=== PATIENT | female | born 1985 | race Caucasian/White ===

== ENCOUNTER 2016-12-24 07:22 | Day surgery (SDC) ==
[2016-12-24] MEDS ORDERED: PHENERGAN IM ONE (07:43)
[2016-12-24] MEDS ORDERED: TORADOL IM ONE (07:44)
--- NOTE | 2016-12-24 07:49 | PROVIDER DOCUMENTATION ---
HPI-General Adult - General Source: patient - History of Present Illness -Gen Adult Nature of Presenting Problems: The patient awoke this morning at 4 am with abdominal pain and nausea. She took an omeprazole but the pain has only subside a little. She states she has alot of stomach problems and also suffers from constipation. Location of Pain/Injury: reports: abdomen (mid to upper abdomen) Pain Radiation: reports: no radiation Quality of Pain: reports: aching, burning, cramping Severity: reports: moderate Onset/Duration: reports: 4-6 hours ago Timing: reports: still present, improving Context/Activities at Onset: reports: moderate activity Modifying Factors: improves with: nothing Associated Symptoms: reports: constipation, heartburn, nausea. denies: chest pain, diaphoresis, diarrhea, fever/chills, sinus congestion/drainage, shortness of breath, syncope, vomiting Similar Symptoms Previously?: Yes Recently seen or treated by another doctor?: No <Deangelo Disla - Last Filed: 12/24/16 07:44> <Juliana Magaña - Last Filed: 12/24/16 11:47> - General Chief Complaint: Abdominal Pain Stated Complaint: ABD PAIN Time Seen by Provider: 12/24/16 07:41 Allergies/Adverse Reactions: Patient Allergies Allergy/AdvReac Type Severity Reaction Status Date / Time Penicillins Allergy VOMITING Verified 12/01/15 07:09 Home Medications: Home Medication List Medication Instructions Recorded Confirmed Last Taken Type Citalopram [Celexa] 20 mg DAILY 12/01/15 12/01/15 Unknown History Omeprazole 20 mg DAILY 12/01/15 12/01/15 Unknown History Review of Systems - Adult - REVIEW OF SYSTEMS - ADULT Constitutional: reports: no symptoms reported Eyes: reports: no symptoms reported Ears, Nose, Mouth & Throat: reports: no symptoms reported Cardiovascular: reports: no symptoms reported Respiratory: reports: no symptoms reported Gastrointestinal: reports: abdominal pain, frequent heartburn, nausea Genitourinary: reports: no symptoms reported Musculoskeletal: reports: no symptoms reported Integumentary: reports: no symptoms reported Neurological: reports: no symptoms reported Psychiatric: reports: no symptoms reported Endocrine: reports: no symptoms reported Hematologic/Lymphatic: reports: no symptoms reported Allergic/Immunologic: reports: no symptoms reported All Other Systems: Reviewed and Negative <Deangelo Disla - Last Filed: 12/24/16 07:44> Past History - Adult - PAST MEDICAL HISTORY-ADULT Review of Records: reports: Nursing Assessment Review Major Childhood Illnesses: reports: denies history Cardiovascular: denies: blood clots, congenital heart disease, murmur Respiratory: denies: asthma Gastrointestinal: reports: GERD Obstetrical/Gynecological: reports: denies history Genitourinary: reports: denies history Musculoskeletal: reports: denies history Neurological: reports: denies history Psychiatric: reports: anxiety Endocrine/Immune: reports: denies history Other Conditions: reports: denies history - PRIOR SURGERIES/PROCEDURES Surgical/Procedure History: reports: cholecystectomy, - IMMUNIZATION STATUS Childhood Immunizations: See Nurse Assessment Flu Vaccine: See Nurse Assessment - FAMILY HISTORY Family History: reviewed, not pertinent - SOCIAL HISTORY Smoking: cigarettes <Deangelo Disla - Last Filed: 12/24/16 07:44> Physical Exam-General - PHYSICAL EXAM-ADULT Initial Vital Signs Reviewed: Yes - CONSTITUTIONAL General Appearance: appears well, alert, no apparent distress - HEAD, EARS, NOSE, MOUTH & THROAT HENMT: normocephalic/atraumatic - RESPIRATORY Respiratory: lungs clear, normal breath sounds, no respiratory distress - CARDIOVASCULAR Cardiovascular: regular rate, rhythm - CHEST (BREASTS) Chest/Breast: deferred - GASTROINTESTINAL (ABDOMEN) Abdominal Exam: soft, tenderness (mild in the epigastrium). negative: distended , guarding, rigid, rebound, hepatomegaly - MUSCULOSKELETAL Extremity: no pedal edema - SKIN Integumentary: normal color, normal turgor - NEUROLOGIC Neurologic: grossly normal - PSYCHIATRIC Psych/Mental Status: oriented x 3 <Deangelo Disla - Last Filed: 12/24/16 07:44> Progress - PLAN OF CARE/RESULTS Progress/Plan/Lab Results: Laboratory Tests 12/24/16 12/24/16 12/24/16 07:57 07:57 08:02 WBC 19.17 H RBC 4.77 Hgb 12.2 Hct 38.9 MCV 81.6 MCH 25.6 L MCHC 31.4 L RDW Std Deviation 14.8 H Plt Count 272 MPV 9.4 Immature Gran % (Auto) 0.3 Neut % (Auto) 79.1 H Lymph % (Auto) 12.7 L Churchill % (Auto) 7.0 Eos % (Auto) 0.8 Baso % (Auto) 0.1 Immature Gran # (Auto) 0.05 H Neut # (Auto) 15.16 H Lymph # (Auto) 2.43 Churchill # (Auto) 1.35 H Eos # (Auto) 0.16 Baso # (Auto) 0.02 Sodium 135 L Potassium 3.9 Chloride 103 Carbon Dioxide 23 L Anion Gap 9 BUN 13 Creatinine 0.6 Estimated GFR/1.73 m2 > 60 BUN/Creatinine Ratio 22 Glucose 108 H Calculated Osmolality 271 Calcium 8.5 L Urine Source CLEAN CATCH Urine Color YELLOW Urine Clarity CLEAR Urine pH 7.0 Ur Specific [place] 1.015 Urine Protein NEGATIVE Urine Ketones NEGATIVE Urine Blood 1+ A Urine Nitrite NEGATIVE Urine Bilirubin NEGATIVE Urine Urobilinogen NORMAL Urine Microscopic RBC <10 Urine WBC NEGATIVE Urine Microscopic WBC <10 Ur Epithelial Cells <10 Urine Glucose NEGATIVE Orders Category Date Time Status FLAT/UPRIGHT ABD/1 VIEW CHEST [RAD] Stat Exams 12/24/16 09:18 Ordered BMP [BASIC METABOLIC PANEL] [CHEM] Stat Lab 12/24/16 07:57 Completed CBC WITH ELECTRONIC DIFF [HEME] Stat Lab 12/24/16 07:[address] W/POSS RFLX CULT [URINALYSIS] Stat Lab 12/24/16 08:02 Completed Ketorolac [Toradol] Med 12/24/16 07:44 Discontinued 60 mg IM NOW ONE Promethazine [Phenergan] Med 12/24/16 07:43 Discontinued 25 mg IM NOW ONE Vital Signs - 24 hr 12/24/16 07:27 Temperature 98 F Pulse Rate 79 Respiratory 18 Rate Blood Pressure 125/73 O2 Sat by Pulse 100 Oximetry - REASSESSMENT Reassessment #1 Time Reassessed: 09:20 (Dr. Disla at bedside with Pt ) Status: unchanged (Pt states mild tenderness with palpation. Pt states the tenderness is generalized. Dr. Disla states abdomen is soft and nondistended. ) Reassessment #2 Time Reassessed: 10:14 (Dr. Disla at bedside with Pt ) Status: unchanged (Pt states pain is still present. Pt states tenderness with palpation is still present. Plain film shows possible enteritis.) - XRAY 1 XRAY: Bilateral XRAY Study: Chest, Abdomen Impression: Abnormal XRAY Interpretation: possible enteritis - CT/MRI 1 CT Study: Abdomen, Pelvis Impression: Abnormal CT Results: acute appendicitis; no abscess; no free air - CONSULTS/PCP/HOSPITALIST Notification #1 *Consult/PCP/Hospitalist*: Dr. Ricketts Time Discussed: 11:35 (Dr. Ricketts states he will call back after looking at Pt's CT scan ) Reason/Comments: Dr. Disla consulted with Dr. Ricketts about PT #2 Consult: Dr. Ricketts Time Discussed: 11:46 (Dr. Ricketts states will see Pt in ED ) Reason/Comments: Dr. Disla consulted with Dr. Ricketts about Pt Consult Disposition: Will see in ED <Juliana Magaña - Last Filed: 12/24/16 11:47> Departure <Deangelo Disla - Last Filed: 12/24/16 07:44> - Departure Time of Disposition Order: 11:46 Certified Medical Emergency: Emergent <Juliana Magaña - Last Filed: 12/24/16 11:47> - Departure DIAGNOSIS: Acute appendicitis Qualifiers: Acute appendicitis type: unspecified acute appendicitis type Qualified Code(s) : K35.80 - Unspecified acute appendicitis Disposition: ADMITTED INPATIENT 09 Condition: Stable Additional Instructions: ED Follow Up Instructions: You have been treated by a care provider in the Emergency Department. These instructions are being provided to you so you can have an understanding of how to care for yourself upon discharge. Upon discharge from the Emergency Department, you are responsible for making arrangements for follow-up care by a physician of your choice. Take all prescribed medications as directed. Return to the Emergency Department immediately for any new or worsening symptoms. You may call the Physician Referral phone number at [phone] to obtain a list of Physicians who are taking new patients. Referrals: Kizzy Sahu [Primary Care Provider] - Attestation - Scribe Verification/Attestation Scribe:: Juliana Magaña Acting as Scribe for:: Deangelo Disla Scribe documention review:: This chart was documented by a scribe and accurately reflects the service the provider performed and the decisions made by the provider. <Juliana Magaña - Last Filed: 12/24/16 11:47> Physician Attestation
[2016-12-24 08:01] LABS: MANUAL DIFF NEEDED? NO
[2016-12-24 08:03] LABS: BASO% 0.1 % (0.0-0.8); EOS# 0.16 X1000 (0.0-0.7); EOS% 0.8 % (0.0-10.0); HEMATOCRIT 38.9 % (37.0-47.0); HEMOGLOBIN 12.2 g/dL (12.0-16.0); IMM GRAN# 0.05 X1000 (0.0-0.04); IMM GRAN% 0.3 % (0.0-0.5); LYMPH# 2.43 X1000 (1.2-3.4); LYMPH% 12.7 % (20.5-51.1); MCH 25.6 PG (27-31); MCHC 31.4 g/dL (33-37); MCV 81.6 FL (81-99); MONO# 1.35 X1000 (0.11-0.59); MPV 9.4 FL (7.4-10.4); NEUT% 79.1 % (42.2-75.2); PLT 272 X1000 (130-400); RBC 4.77 XMIL (4.2-5.4)
[2016-12-24 08:07] LABS: URINE CULTURE PL NEEDED? NO; URINE SOURCE CLEAN CATCH
[2016-12-24 08:18] LABS: BILIRUBIN URINE NEGATIVE (NEGATIVE); BLOOD URINE 1+ (NEGATIVE); CLARITY CLEAR (CLEAR); COLOR YELLOW; GLUCOSE URINE NEGATIVE (NEGATIVE); LEUKOCYTES URINE NEGATIVE (NEGATIVE); NITRITE URINE NEGATIVE (NEGATIVE); PROTEIN URINE NEGATIVE (NEGATIVE); SP GRAVITY URINE 1.015; UROBILINOGEN URINE NORMAL
[2016-12-24 08:18] LABS: AGAP 9; BUN 13 mg/dL (8-22); CALCIUM 8.5 mg/dL (8.8-10.2); CHLORIDE 103 mmol/L (98-107); COSMO 271; POTASSIUM 3.9 mmol/L (3.5-5.1); SODIUM 135 mmol/L (136-145); TCO2 23 mmol/L (25-35)
[2016-12-24 08:59] LABS: URINE EPITHELIAL CELLS <10 /HPF (<10); URINE RBC <10 /HPF (<10); URINE WBC <10 /HPF (<10)
[2016-12-24] MEDS ORDERED: NS 500 ML IV ONE (10:14)
--- NOTE | 2016-12-24 10:41 | Diag Imaging Result Document ---
PROCEDURE NAME: FLAT/UPRIGHT ABD/1 VIEW CHEST - 12/24/2016 SUPINE AND UPRIGHT ABDOMEN AND ONE-VIEW CHEST: COMPARISON: 12/01/2015. FINDINGS: There is gas and retained fecal debris visible in nondistended colon. There is scattered small bowel gas visible, and there are some air fluid levels on the upright view. There is no substantial gaseous small bowel distention identified to suggest small bowel obstruction. There is no free air identified. There are surgical clips at the right upper quadrant. The upright chest shows a normal heart size. There is a granuloma from old granulomatous disease at the left upper lobe which is stable. There is no consolidation, pleural effusion, or pneumothorax identified. IMPRESSION: 1. Bowel gas pattern which may relate to mild enteritis. There is no indication of bowel obstruction. 2. No evidence of acute cardiopulmonary disease.
--- NOTE | 2016-12-24 11:08 | Diag Imaging Result Document ---
PROCEDURE NAME: CT ABD/PELVIS W/ IV CONT ONLY - 12/24/2016 CT ABDOMEN AND PELVIS WITH IV CONTRAST ONLY: TECHNIQUE: The exam was performed with intravenous contrast only per request of the referring provider. A dose reduction protocol was used. COMPARISON: 04/19/2015. FINDINGS: The visualized lung bases appear clear except for mild dependent atelectasis. There are no substantial abnormalities of the liver, spleen, adrenal glands, or pancreas identified. There are no calcified gallstones seen. The gallbladder is surgically absent. There is no biliary ductal dilatation identified. The bilateral kidneys enhance homogeneously. There is no hydronephrosis. There are no substantial enlarged lymph nodes identified. There is no evidence of bowel obstruction. The appendix is enlarged and is larger compared to the previous exam. The margins of the appendix are mildly hazy, and there is some inflammation of periappendiceal fat. These findings are compatible for acute appendicitis. There is no abscess identified. There is no free air identified. Images of the pelvis show apparent small cervical cyst similar to the previous exam. There is no other abnormal pelvic mass or fluid collection identified. IMPRESSION: 1. Enlarged appendix with mild inflammatory changes of surrounding fat, compatible with acute appendicitis. 2. No abscess. No free air. Verbal results were provided to Dr. Disla at 10:55 a.m. on 12/24/2016. [facility] HOSPITALMeghan
[2016-12-24] MEDS ORDERED: NS 1,000 ML IV ONE (12:23)
[2016-12-24] MEDS ORDERED: LEVAQUIN 750 MG/D5W 150 ML IV ONE (12:23)
[2016-12-24] MEDS ORDERED: DILAUDID IV PRN (12:24)
[2016-12-24] MEDS ORDERED: SODIUM CHLORIDE 0.9% INJ PRN (12:24)
[2016-12-24] MEDS ORDERED: PHENERGAN IV PRN (12:24)
[2016-12-24] MEDS ORDERED: KEFZOL 1 GM/D5W 50 ML IV ONE (12:26)
[2016-12-24] MEDS ORDERED: VALIUM ONE (14:18)
[2016-12-24] MEDS ORDERED: REGLAN ONE (14:18)
[2016-12-24] MEDS ORDERED: PEPCID ONE (14:18)
[2016-12-24] MEDS ORDERED: LR 1,000 ML ONE ×2 (14:18→16:04)
[2016-12-24] MEDS ORDERED: KEFZOL 1 GM/D5W 50 ML ONE (14:25)
--- NOTE | 2016-12-24 15:19 | HISTORY AND PHYSICAL ---
CHIEF COMPLAINT: Abdominal pain. HISTORY OF PRESENT ILLNESS: A 31-year-old female who had some generalized abdominal pain last night after supper and then woke up at 4 a.m. this morning with acute onset of lower abdominal pain, right side greater than left. No associated nausea, vomiting, diarrhea, constipation, fever or chills. No exacerbating factors. It has been relieved some with pain medicine here in the ER. PAST MEDICAL HISTORY: Gastroesophageal reflux disease and anxiety. PAST SURGICAL HISTORY: Laparoscopic cholecystectomy and . HOME MEDICATIONS: Citalopram and omeprazole. ALLERGIES: Penicillin. SOCIAL HISTORY: She does smoke. Denies alcohol or illicit drug use. REVIEW OF SYSTEMS: Ten systems reviewed and negative except as noted above. FAMILY HISTORY: Reviewed and noncontributory. PHYSICAL EXAMINATION: VITAL SIGNS: Temperature 98 degrees, pulse 79, respirations 18, blood pressure 125/73, O2 saturation 100%. GENERAL: Well-developed, well-nourished female in no distress who looks her stated age. HEENT: Normocephalic, atraumatic. Extraocular muscles intact. Pupils equal, round, reactive to light. Sclerae anicteric. Moist mucous membranes. NECK: Supple. No thyromegaly. CARDIOVASCULAR: Regular rate and rhythm. RESPIRATORY: Bilateral equal breath sounds. GASTROINTESTINAL: Soft, nondistended. No organomegaly or mass. She does have focal tenderness in the right lower quadrant. No rebound or guarding. EXTREMITIES: No clubbing, cyanosis, or edema. SKIN: Warm and dry. No rash. MUSCULOSKELETAL: Moves all extremities equally and well. LABORATORY: White blood cell count 19,000, hemoglobin 12, platelet count 272,000. Basic metabolic profile reviewed and unremarkable. Urinalysis unremarkable. IMAGING: CT of abdomen and pelvis was reviewed by me as well as the dictated report. She does have a dilated appendix with moderate pericecal inflammation. No signs of rupture or abscess. ASSESSMENT AND PLAN: A 31-year-old female with abdominal pain, leukocytosis and imaging findings all consistent with acute appendicitis. I have recommended laparoscopic appendectomy. We discussed the risks, benefits, and alternatives including bleeding, infection, injury to surrounding organs, such as the intestines, incisional hernia, and other imponderables. She understands and agrees to proceed.
[2016-12-24] MEDS ORDERED: MARCAINE 0.25% PF/EPI 1:200,000 ONE (16:04)
[2016-12-24] MEDS ORDERED: FENTANYL ONE (17:22)
[2016-12-24] MEDS ORDERED: DIPRIVAN 1% ONE (17:23)
[2016-12-24] MEDS ORDERED: MORPHINE ONE (17:39)
[2016-12-24] MEDS ORDERED: NORCO-10 ONE (17:51)
[2016-12-24] MEDS ORDERED: NORCO-10 PO PRN (18:07)
[2016-12-24 18:34] VITALS: BP 116/74
[2016-12-25] MEDS ORDERED: ZOFRAN ONE (09:48)
[2016-12-25] MEDS ORDERED: ROBINUL ONE (09:48)
[2016-12-25] MEDS ORDERED: QUELICIN (DOSE) ONE (09:48)
[2016-12-25] MEDS ORDERED: DECADRON ONE (09:48)
[2016-12-25] MEDS ORDERED: XYLOCAINE-MPF 2% ONE (09:48)
--- NOTE | 2016-12-27 10:03 | OPERATIVE NOTE ---
PROCEDURE DATE: 12/24/2016 PREOPERATIVE DIAGNOSIS: Acute appendicitis. POSTOPERATIVE DIAGNOSIS: Acute appendicitis. PROCEDURE PERFORMED: Laparoscopic appendectomy. SURGEON: Carlton Ricketts MD ANESTHESIA: General. ESTIMATED BLOOD LOSS: 5 mL. COMPLICATIONS: None apparent. SPECIMENS: Appendix. FINDINGS: The appendix was obviously swollen and inflamed. There was no evidence of any rupture or abscess. TECHNIQUE: She was brought to the operating room and placed supine on the table. General anesthesia was induced. She was prepped and draped in the usual sterile fashion. A small incision was made just above the umbilicus. The fascia was exposed and incised sharply. Entry into the peritoneal cavity was obtained under direct vision with the Optiview device. A pneumoperitoneum was established. The camera was inserted. There was no evidence of injury to underlying structures. She was placed in Trendelenburg and left rotation. A 5 mm incision and port was placed in the lower midline above the bladder and a 12 mm incision and ports placed in the left lower quadrant. I then reflected the small bowel and cecum up and out of the way and found the appendix adherent to the lateral and posterior retroperitoneum. The base of the appendix was lifted up and a window was created underneath the base of the appendix through the appendiceal mesentery with a [place] forceps. A stapler was brought in and the appendix was divided with an Endo-RITIKA stapler. I then divided the appendiceal mesentery and peritoneal and retroperitoneal attachments with the LigaSure device, staying right up against the appendix. The appendix was then placed in an EndoCatch bag and brought out through the 12 mm port site. I inspected the dissection area. There were no signs of any bleeding. We irrigated with saline and, again, there were no signs of any bleeding. We suctioned out the saline and I then closed the left lower quadrant port site fascia with 0 Vicryl using the Jose Elias-Petey device. The abdomen was desufflated. The ports were removed. The skin was closed with running 4-0 subcuticular Monocryl and Steri-Strips. There were no apparent complications.
== END 2016-12-24 18:46 | disposition home or self-care (01) ==
LOC: P.ED 07:22 → OPS 13:59
PROVIDERS: ATTEND Surgery
DX: K35.80 Unspecified acute appendicitis (principal); K21.9 Gastro-esophageal reflux disease without esophagitis; F41.9 Anxiety disorder, unspecified; Z79.899 Other long term (current) drug therapy; F17.210 Nicotine dependence, cigarettes, uncomplicated; D72.829 Elevated white blood cell count, unspecified; K59.00 Constipation, unspecified; R11.0 Nausea; R12 Heartburn
CPT/HCPCS: 36415; 74022; 74177; 80048; 81001; 81025; 85025; 88304; 96360; 96372; J0330; J0690; J1100; J1885; J2270; J2405; J2550; J3010; J7040; J7120; Q9967